=== PATIENT | female | born 1995 | race Caucasian/White ===

== ENCOUNTER → 2025-01-05 15:25 | Outpatient (CLI) | payer OTHER, SELFPAY ==
[2025-01-05 17:18] LABS: Natera Collection Specimen Collected
[2025-01-05 17:33] LABS: Add Manual Diff / Slide Review NO; Hematocrit 33.2 % (36-46); Hemoglobin 11.3 g/dL (12.0-16.0); Lymphocytes Absolute Auto 2500 /uL (1100-4500); Mean Corpuscular HGB Conc 34.1 % (30-36); Mean Corpuscular Hemoglobin 29.8 PG (26-34); Mean Corpuscular Volume 87.2 fL (80-100); Platelet Count 332 X10^3/uL (150-400)
[2025-01-05 18:13] LABS: HEMOLYSIS < 15 (0-50); Iron 75 ug/dL (37-170)
[2025-01-05 18:25] LABS: Percent Iron Saturation 16 % (15-50); Total Iron Binding Capacity 480 ug/dL (265-497); Transferrin 401 mg/dL (206-381)
[2025-01-05 18:32] LABS: Free T4, Direct Thyroxine 1.11 ng/dL (0.78-2.19)
[2025-01-05 18:45] LABS: Thyroid Stimulating Hormone 2.20 uIU/mL (0.47-4.68)
[2025-01-05 18:49] LABS: Ferritin 12 ng/mL (6-137)
[2025-01-06 15:34] LABS: Hepatitis B Surface Antigen NEGATIVE s/c (NEGATIVE)
[2025-01-06 15:50] LABS: HIV 1 & 2 Ab/Ag 4th Gen Combo NEGATIVE (NEGATIVE); Hep C Virus Ab w/Reflex Quant NEGATIVE s/c (NEGATIVE)
== END ==
PROVIDERS: Referring Provider Obstetrics & Gynecology; Visit Provider Obstetrics & Gynecology
DX: O09.899 Supervision of other high risk pregnancies, unspecified trimester (principal); Z31.81 Encounter for male factor infertility in female patient; Z36.0 Encounter for antenatal screening for chromosomal anomalies; Z3A.20 20 weeks gestation of pregnancy
CPT/HCPCS: 36415; 80055; 82105; 82728; 83540; 83550; 84439; 84443; 86787; 86803; 86850; 86900; 86901; 87389